=== PATIENT | male | born 1960 | race Two or more races ===

== ENCOUNTER 2021-09-30 15:41 | Inpatient (IN) | payer OTHER ==
[2021-09-30 18:50] VITALS: BMI 33.0
[2021-09-30] MEDS ORDERED: NICOTINE POLACRILEX 2 MG GUM BUC PRN (20:56)
[2021-09-30] MEDS ORDERED: MAGNESIUM CITRATE 300 ML BOTTLE PO PRN (20:56)
[2021-09-30] MEDS ORDERED: BENZOCAINE/MENTHOL (CHLORASEPTIC ) LOZENGE MM PRN (20:56)
[2021-09-30] MEDS ORDERED: LOPERAMIDE HCL 2 MG CAPSULE PO PRN (20:56)
[2021-09-30] MEDS ORDERED: DICYCLOMINE HCL 10 MG CAPSULE PO PRN (20:56)
[2021-09-30] MEDS ORDERED: BISMUTH SUBSALICYLATE 524 MG/30 ML PO PRN (20:56)
[2021-09-30] MEDS ORDERED: MAG HYDROX/AL HYDROX/SIMETH 30 ML UNIT-DOSE CUP PO PRN (20:56)
[2021-09-30] MEDS ORDERED: MAGNESIUM HYDROX 2400MG/30ML ORAL SUSPENSION 30 ML CUP PO PRN (20:56)
[2021-09-30] MEDS ORDERED: ONDANSETRON *ODT* 4 MG TABLET SL PRN (20:56)
[2021-09-30] MEDS ORDERED: ACETAMINOPHEN 325 MG TABLET (FP) PO PRN (20:56)
[2021-09-30] MEDS ORDERED: FLU VACC QS2021-22(6MOS UP)/PF 60 MCG/0.5 ML SYRINGE IM ONE (23:00)
[2021-09-30] MEDS: METHOCARBAMOL 500 MG TABLET PO PRN (23:43)
[2021-09-30] MEDS: ACETAMINOPHEN 325 MG TABLET (FP) PO PRN (23:44)
[2021-09-30] MEDS: MELATONIN 5 MG TABLETS PO SCH (23:44)
[2021-09-30] MEDS: THIAMINE HCL 100 MG TABLET (FP) PO SCH (23:45)
[2021-10-01] MEDS: PRENATAL VITAMINS W/ FOLIC ACID TABLET (FP) PO SCH (10:44)
[2021-10-01] MEDS: METHOCARBAMOL 500 MG TABLET PO PRN (10:44)
[2021-10-01] MEDS: NICOTINE 14 MG/24 HOURS TOPICAL PATCH TD SCH (10:45)
[2021-10-01] MEDS: ACETAMINOPHEN 325 MG TABLET (FP) PO PRN (10:45)
[2021-10-01 11:53] LABS: CALCIUM 8.3 mg/dL (8.5-10.1)
[2021-10-01 11:54] LABS: BLOOD UREA NITROGEN 5.6 mg/dL (7-18); HEMATOCRIT 35.3 % (35.4-49); HEMOGLOBIN 11.8 GM/dL (11.7-16.9); MCH 37.7 pg (25.7-33.7); MCHC 33.4 g/dl (32.0-35.9); MEAN CELL VOLUME 112.6 fl (80-96); MEAN PLT VOLUME 7.8 fl (7.5-11.1); PLATELET COUNT 154 10^3/uL (134-434); RBC 3.14 M/mm3 (4.00-5.60); RDW 17.8 % (11.9-15.9); WHITE BLOOD COUNT 3.6 K/mm3 (4.0-10.0)
[2021-10-01 11:55] LABS: ALBUMIN 3.2 g/dl (3.4-5.0)
[2021-10-01 11:59] LABS: BILIRUBIN,TOTAL 1.8 mg/dL (0.2-1); TOT PROT 6.7 g/dl (6.4-8.2)
[2021-10-01] MEDS ORDERED: FLU VACC QS2021-22(6MOS UP)/PF 60 MCG/0.5 ML SYRINGE IM ONE (12:00)
[2021-10-01] MEDS ORDERED: chlordiazePOXIDE HCL 25 MG CAPSULE PO PRN (13:02)
[2021-10-01] MEDS: LISINOPRIL 10 MG TABLET PO SCH (15:52)
[2021-10-01] MEDS: chlordiazePOXIDE HCL 25 MG CAPSULE PO SCH ×2 (17:55→22:33)
[2021-10-01] MEDS: MELATONIN 5 MG TABLETS PO SCH (22:33)
[2021-10-01] MEDS: THIAMINE HCL 100 MG TABLET (FP) PO SCH (22:33)
[2021-10-01] MEDS: IBUPROFEN 400 MG TABLET (FP) PO PRN (22:36)
[2021-10-02] MEDS: chlordiazePOXIDE HCL 25 MG CAPSULE PO SCH ×4 (06:20→22:33)
[2021-10-02] MEDS: NICOTINE 14 MG/24 HOURS TOPICAL PATCH TD SCH (10:28)
[2021-10-02] MEDS: PRENATAL VITAMINS W/ FOLIC ACID TABLET (FP) PO SCH (10:28)
[2021-10-02] MEDS: METHOCARBAMOL 500 MG TABLET PO PRN (10:29)
[2021-10-02] MEDS: IBUPROFEN 400 MG TABLET (FP) PO PRN ×2 (10:30→22:35)
[2021-10-02] MEDS: LISINOPRIL 10 MG TABLET PO SCH (10:30)
[2021-10-02 14:06] LABS: SARS-CoV-2 NAA Not Detected (Not Detected)
[2021-10-02 14:06] LABS: SARS-CoV-2 NAA Not Detected (Not Detected)
[2021-10-02] MEDS ORDERED: MELATONIN 5 MG TABLETS PO SCH (22:00)
[2021-10-02] MEDS: THIAMINE HCL 100 MG TABLET (FP) PO SCH (22:33)
[2021-10-03] MEDS: chlordiazePOXIDE HCL 25 MG CAPSULE PO SCH ×4 (05:41→22:46)
[2021-10-03 09:48] LABS: BASO % 0.4 % (0-2.0); EOS % 4.6 % (0-4.5); HEMATOCRIT 32.8 % (35.4-49); HEMOGLOBIN 11.3 GM/dL (11.7-16.9); LYMPH % 14.4 % (8-40); MCH 39.1 pg (25.7-33.7); MCHC 34.5 g/dl (32.0-35.9); MEAN CELL VOLUME 113.5 fl (80-96); MEAN PLT VOLUME 7.7 fl (7.5-11.1); MONO % 12.3 % (3.8-10.2); NEUT % 68.3 % (42.8-82.8); PLATELET COUNT 165 10^3/uL (134-434); RBC 2.89 M/mm3 (4.00-5.60); RDW 18.2 % (11.9-15.9); WHITE BLOOD COUNT 5.3 K/mm3 (4.0-10.0)
[2021-10-03 09:55] LABS: ALBUMIN 2.9 g/dl (3.4-5.0); BLOOD UREA NITROGEN 9.3 mg/dL (7-18); CALCIUM 8.3 mg/dL (8.5-10.1)
[2021-10-03 09:58] LABS: CREATININE 0.8 mg/dL (0.55-1.3)
[2021-10-03 10:00] LABS: TOT PROT 6.2 g/dl (6.4-8.2)
[2021-10-03 10:02] LABS: BILIRUBIN,TOTAL 1.2 mg/dL (0.2-1)
[2021-10-03 10:19] LABS: ANISOCYTOSIS 3+; MACROCYTOSIS 3+
[2021-10-03] MEDS: LISINOPRIL 10 MG TABLET PO SCH (10:29)
[2021-10-03] MEDS: NICOTINE 14 MG/24 HOURS TOPICAL PATCH TD SCH (10:31)
[2021-10-03] MEDS: PRENATAL VITAMINS W/ FOLIC ACID TABLET (FP) PO SCH (10:31)
[2021-10-03] MEDS: SUVOREXANT 10 MG TABLET PO PRN (22:46)
[2021-10-03] MEDS: THIAMINE HCL 100 MG TABLET (FP) PO SCH (22:46)
[2021-10-04] MEDS ORDERED: chlordiazePOXIDE HCL 10 MG CAPSULE PO PRN
[2021-10-04] MEDS: chlordiazePOXIDE HCL 10 MG CAPSULE PO SCH ×4 (05:55→23:22)
[2021-10-04] MEDS: NICOTINE 14 MG/24 HOURS TOPICAL PATCH TD SCH (10:21)
[2021-10-04] MEDS: PRENATAL VITAMINS W/ FOLIC ACID TABLET (FP) PO SCH (10:21)
[2021-10-04] MEDS: METHOCARBAMOL 500 MG TABLET PO PRN (10:22)
[2021-10-04] MEDS: LISINOPRIL 10 MG TABLET PO SCH (14:00)
[2021-10-04] MEDS: THIAMINE HCL 100 MG TABLET (FP) PO SCH (23:21)
[2021-10-04] MEDS: SUVOREXANT 10 MG TABLET PO PRN (23:21)
[2021-10-05] MEDS: chlordiazePOXIDE HCL 10 MG CAPSULE PO SCH ×2 (05:44→17:54)
[2021-10-05] MEDS: IBUPROFEN 400 MG TABLET (FP) PO PRN (05:49)
[2021-10-05] MEDS: METHOCARBAMOL 500 MG TABLET PO PRN ×2 (05:49→22:23)
[2021-10-05] MEDS: NICOTINE 14 MG/24 HOURS TOPICAL PATCH TD SCH (10:35)
[2021-10-05] MEDS: PRENATAL VITAMINS W/ FOLIC ACID TABLET (FP) PO SCH (10:35)
[2021-10-05] MEDS: LISINOPRIL 10 MG TABLET PO SCH (12:47)
[2021-10-05] MEDS ORDERED: COLLOIDAL OATMEAL 1 BAR EACH TP PRN (13:39)
[2021-10-05] MEDS: THIAMINE HCL 100 MG TABLET (FP) PO SCH (22:19)
[2021-10-06] MEDS ORDERED: chlordiazePOXIDE HCL 10 MG CAPSULE PO ONE (05:00)
[2021-10-06] MEDS: IBUPROFEN 400 MG TABLET (FP) PO PRN (05:39)
[2021-10-06 09:18] VITALS: BP 127/81; PULSE 100; TEMP 98
[2021-10-06] MEDS: PRENATAL VITAMINS W/ FOLIC ACID TABLET (FP) PO SCH (10:03)
[2021-10-06] MEDS: NICOTINE 14 MG/24 HOURS TOPICAL PATCH TD SCH (10:03)
[2021-10-06] MEDS: LISINOPRIL 10 MG TABLET PO SCH (10:03)
== END 2021-10-06 10:25 | disposition home or self-care (01) | DRG 775 ==
LOC: YASAS 15:41 → Y6N 22:35
PROVIDERS: ADMIT Allergy & Immunology; ATTEND Allergy & Immunology
PROC: HZ2ZZZZ Detoxification Services for Substance Abuse Treatment (ICD-10-PCS; principal; 2021-09-30)
DX: F10.230 Alcohol dependence with withdrawal, uncomplicated (principal); F19.280 Other psychoactive substance dependence with psychoactive substance-induced anxiety disorder; F19.282 Other psychoactive substance dependence with psychoactive substance-induced sleep disorder; I10 Essential (primary) hypertension; Z56.0 Unemployment, unspecified
CPT/HCPCS: 36415; 80053; 82962; 85025; 85027; 86780; 87811; 90686; 93005; 93010; C9803-CS; G0008; U0003; U0005